=== PATIENT | female | born 1985 | race Caucasian/White ===

== ENCOUNTER 2023-02-27 04:01 | Day surgery (SDC) | payer BC, OTHER ==
[2023-02-23 08:48] VITALS: BMI 29.8
[2023-02-27] MEDS ORDERED: LIDOCAINE HCL 1%, 10 MG/ML (20ML VIAL) ONE (07:39)
[2023-02-27] MEDS ORDERED: BUPIVACAINE HCL/PF 0.5% (5MG/ML) 10 ML VIAL ONE (07:39)
[2023-02-27] MEDS ORDERED: MIDAZOLAM HCL 2 MG/2 ML SINGLE DOSE VIAL ONE (11:59)
[2023-02-27] MEDS ORDERED: PROPOFOL 20 ML ONE (11:59)
[2023-02-27] MEDS ORDERED: ONDANSETRON 4 MG/2 ML VIAL ONE ×2 (12:00→14:12)
[2023-02-27] MEDS ORDERED: ceFAZolin SODIUM 1 GM VIAL ONE (12:00)
[2023-02-27] MEDS ORDERED: KETOROLAC TROMETHAMINE 30 MG/1 ML VIAL ONE (12:00)
[2023-02-27] MEDS ORDERED: LIDOCAINE HCL/PF 2% SDV 5ML VIAL ONE (12:00)
[2023-02-27] MEDS ORDERED: DEXAMETHASONE SOD PHOSPHATE 4 MG/1 ML VIAL ONE (12:00)
[2023-02-27] MEDS ORDERED: SEVOFLURANE 250 ML BTL ONE (12:01)
[2023-02-27] MEDS ORDERED: oxyCODONE HCL 5 MG TABLET PO PRN (12:05)
[2023-02-27] MEDS ORDERED: PROMETHAZINE HCL 25 MG/1 ML VIAL IVPB PRN (12:05)
[2023-02-27] MEDS ORDERED: ONDANSETRON 4 MG/2 ML VIAL IVPUSH PRN (12:05)
[2023-02-27] MEDS ORDERED: ACETAMINOPHEN 1000 MG/100 ML BAG IVPB PRN (12:06)
[2023-02-27] MEDS ORDERED: LACTATED RINGERS SOLUTION 1,000 ML IV SCH (12:15)
[2023-02-27] MEDS ORDERED: ceFAZolin SODIUM 1 GM VIAL IVPB ONE (12:45)
[2023-02-27] MEDS ORDERED: BUPIVACAINE HCL/PF 0.5% (5MG/ML) 10 ML VIAL IJ ONE (13:03)
[2023-02-27] MEDS ORDERED: ACETAMINOPHEN 1000 MG/100 ML BAG IVPB ONE (13:34)
[2023-02-27] MEDS ORDERED: PROMETHAZINE HCL 25 MG/1 ML VIAL ONE ×2 (15:16→15:23)
[2023-02-27 16:27] VITALS: BP 108/69; PULSE 69; RESP 18; TEMP 97.3
[2023-02-28] MEDS ORDERED: oxyCODONE HCL 5 MG TABLET PO PRN (12:05)
== END 2023-02-27 16:50 | disposition home or self-care (01) ==
LOC: JASU-SURG 04:01
PROVIDERS: ATTEND Surgery
PROC: 0WUF0JZ Supplement Abdominal Wall with Synthetic Substitute, Open Approach (ICD-10-PCS; principal; 2023-02-27 08:00)
DX: K42.9 Umbilical hernia without obstruction or gangrene (principal)
CPT/HCPCS: 81025; 94760

== ENCOUNTER 2024-02-28 04:07 | Day surgery (SDC) | payer BC, OTHER ==
[2024-02-27 10:03] VITALS: BMI 28.3
[2024-02-28] MEDS ORDERED: BUPIVACAINE HCL/PF 0.25% (2.5MG/ML) 10 ML VIAL ONE (07:37)
[2024-02-28] MEDS ORDERED: SCOPOLAMINE HYDROBROMIDE 1 PATCH PATCH.TD72 ONE (07:40)
[2024-02-28] MEDS ORDERED: MIDAZOLAM HCL 2 MG/2 ML SINGLE DOSE VIAL ONE (07:50)
[2024-02-28] MEDS ORDERED: PROPOFOL 20 ML ONE (07:50)
[2024-02-28] MEDS ORDERED: ceFAZolin SODIUM 1 GM VIAL ONE (08:17)
[2024-02-28] MEDS: ceFAZolin SODIUM 1 GM VIAL IVPB ONE (08:20)
[2024-02-28] MEDS: BUPIVACAINE HCL/PF 0.25% (2.5MG/ML) 10 ML VIAL IJ ONE ×2 (08:34)
[2024-02-28] MEDS ORDERED: LIDOCAINE HCL/PF 2% SDV 5ML VIAL ONE (08:49)
[2024-02-28] MEDS ORDERED: ROCURONIUM BROMIDE 50 MG/5 ML SYRINGE ONE (08:50)
[2024-02-28] MEDS ORDERED: CEFAZOLIN 2 GM/D5W 2 GM/50 ML ML IVPB ONE (10:30)
[2024-02-28] MEDS ORDERED: SUGAMMADEX SODIUM 200 MG/2 ML VIAL ONE (10:43)
[2024-02-28] MEDS: ONDANSETRON 4 MG/2 ML VIAL IVPUSH PRN (11:09)
[2024-02-28] MEDS ORDERED: PROMETHAZINE HCL 25 MG/1 ML VIAL ONE (11:27)
[2024-02-28] MEDS: PROMETHAZINE HCL 25 MG/1 ML VIAL IVPB PRN (11:30)
[2024-02-28] MEDS: LACTATED RINGERS SOLUTION 1,000 ML IV SCH (11:34)
[2024-02-28 13:12] VITALS: RESP 16
[2024-02-28] MEDS: ONDANSETRON 4 MG/2 ML VIAL IVPUSH ONE (14:10)
[2024-02-28] MEDS ORDERED: ONDANSETRON 4 MG/2 ML VIAL ONE (14:13)
[2024-02-28 14:30] VITALS: TEMP 98
[2024-02-28 16:03] VITALS: BP 133/83; PULSE 81
== END 2024-02-28 15:50 | disposition home or self-care (01) ==
LOC: JASU-SURG 04:07
PROVIDERS: ATTEND Surgery
PROC: 8E0W4CZ Robotic Assisted Procedure of Trunk Region, Percutaneous Endoscopic Approach (ICD-10-PCS; 2024-02-28)
PROC: 0WQF4ZZ Repair Abdominal Wall, Percutaneous Endoscopic Approach (ICD-10-PCS; principal; 2024-02-28 08:00)
DX: K42.9 Umbilical hernia without obstruction or gangrene (principal)
CPT/HCPCS: 86850; 86900; 86901; 94760; C1781